=== PATIENT | female | born 1965 ===

== ENCOUNTER 2021-11-15 11:03 | Outpatient (CLI) | payer OTHER | END 2021-11-15 11:08 | disposition home or self-care (01) | LOC: SONOGRAMA 11:03 | PROVIDERS: ATTEND Pathology Anatomic Pathology & Clinical Pathology | DX: E04.2 Nontoxic multinodular goiter (principal) ==

== ENCOUNTER 2025-07-11 09:26 | Outpatient (CLI) | payer OTHER | END 2025-07-11 09:31 | disposition home or self-care (01) | LOC: SONOGRAMA 09:26 | PROVIDERS: ATTEND Pathology Anatomic Pathology | DX: D34 Benign neoplasm of thyroid gland (principal); E07.89 Other specified disorders of thyroid; E04.1 Nontoxic single thyroid nodule ==